=== PATIENT | male | born 1975 | race Caucasian/White ===

== ENCOUNTER 2016-06-06 07:19 | Emergency (ER) | payer BC, OTHER ==
[2016-06-06 07:35] VITALS: BP 133/71
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
== END 2016-06-06 09:05 | disposition home or self-care (01) ==
LOC: VM.ED 07:19
DX: S09.90XA Unspecified injury of head, initial encounter (principal); S13.4XXA Sprain of ligaments of cervical spine, initial encounter; S60.511A Abrasion of right hand, initial encounter; V89.2XXA Person injured in unspecified motor-vehicle accident, traffic, initial encounter; Z79.82 Long term (current) use of aspirin
CPT/HCPCS: 70450; 72125; 99284